=== PATIENT | male | born 1965 | race Caucasian/White ===

== ENCOUNTER 2017-09-10 21:48 | Emergency (ER) | payer SELFPAY ==
[2017-09-10 22:19] LABS: BASO # 0.1 K/uL (0.0-0.2); BASO % 0.3 % (0.0-2.0); HEMATOCRIT 48.4 % (35.0-51.0); LYMPH # 1.2 K/uL (1.0-4.3); LYMPH % 5.4 % (20.0-40.0); MEAN CELL VOLUME 96.4 fL (80.0-94.0); MEAN CORPUSCULAR HEMOGLOBIN 32.6 pg (27.0-31.0); MEAN CORPUSCULAR HGB CONC 33.9 g/dL (33.0-37.0); MEAN PLATELET VOLUME 8.3 fL (7.2-11.7); MONO # 1.4 K/uL (0.0-0.8); MONO % 6.3 % (0.0-10.0); NRBC % 0.1 % (0.0-2.0); PLATELET COUNT 278 K/uL (130-400); RED CELL DISTRIBUTION WIDTH 12.9 % (11.5-14.5)
[2017-09-10] MEDS ORDERED: Lactated Ringer's 1,000 ML IV STA (22:20)
[2017-09-10] MEDS ORDERED: Pantoprazole 80 MG in Sodium Chloride 0.9% 100 ML IV STA (22:20)
--- NOTE | 2017-09-10 22:20 | C.PDOC ---
History Of Present Illness Patient presents to ED with complaints of abdominal pain 04/04 with associated nausea and vomiting for 4-5 days. Patient states symptoms developed drinking over the weekend but denies daily ETOH use. Patient states he drank a reddish tea which he vomited and denies hematemesis, blood in stool, diarrhea or any other complaints at this time. Time Seen by Provider: 09/10/17 22:20 Chief Complaint (Nursing): GI Problem History Per: Patient History/Exam Limitations: no limitations Onset/Duration Of Symptoms: Days Current Symptoms Are (Timing): Still Present Number Of Bleeding Episodes: Unknown Severity: Mild Pain Scale Rating Of: 2 Quality Of Discomfort: "Pain" Associated Symptoms: Nausea, Vomiting. denies: Diarrhea, Hematemesis Modifying Factors: None Recent travel outside of the [place]: No Additional History Per: Patient Past Medical History Reviewed: Historical Data, Nursing Documentation, Vital Signs Vital Signs: Last Vital Signs Temp 99.5 F 09/10/17 22:19 Pulse 102 H 09/11/17 02:13 Resp 18 09/11/17 02:13 BP 157/83 H 09/11/17 02:13 Pulse Ox 98 09/11/17 02:13 - Medical History PMH: Gastrointestinal Ulcer Surgical History: No Surg Hx Family History: States: No Known Family Hx - Social History Hx Tobacco Use: Yes (Cigars) Hx Alcohol Use: Yes (Beer) Hx Substance Use: No - Immunization History Hx Tetanus Toxoid Vaccination: No Hx Influenza Vaccination: No Hx Pneumococcal Vaccination: No Review Of Systems Constitutional: Negative for: Fever, Chills Gastrointestinal: Positive for: Nausea, Vomiting, Abdominal Pain. Negative for : Diarrhea, Hematemesis Genitourinary: Negative for: Dysuria, Hematuria Musculoskeletal: Negative for: Back Pain Skin: Negative for: Rash Physical Exam - Physical Exam Appears: Non-toxic, No Acute Distress Skin: Warm, Dry, No Rash Head: Normacephalic Oral Mucosa: Dry Chest: Symmetrical Cardiovascular: Rhythm Regular Respiratory: No Rales, No Rhonchi, No Wheezing Gastrointestinal/Abdominal: Soft, Tenderness (Mid epigastric), No Guarding, No Rebound Back: No CVA Tenderness Neurological/Psych: Oriented x3 ED Course And Treatment - Laboratory Results Result Diagrams: 09/10/17 22:16 09/10/17 22:16 ECG: Interpreted By Me, Viewed By Me O2 Sat by Pulse Oximetry: 100 (RA) Pulse Ox Interpretation: Normal - Radiology CXR Interpretation: Yes: COPD. No: Infiltrates, Fracture, Cardiomegaly Reevaluation Time: 02:51 Reassessment Condition: Improved Disposition Counseled Patient/Family Regarding: Studies Performed, Diagnosis, Need For Followup, Rx Given - Disposition Referrals: [facility] [Outside] [facility] [Outside] Emmanuel Cosme MD [Staff Provider] - Disposition: HOME/ ROUTINE Disposition Time: 22:20 Condition: FAIR Prescriptions: Metronidazole [Flagyl] 500 mg PO TID #21 tablet Ondansetron ODT [Zofran ODT] 1 odt PO BID PRN #10 odt PRN Reason: Nausea/Vomiting Pantoprazole Sodium [Protonix] 40 mg PO DAILY #15 ect Instructions: Abdominal Pain (ED), Gastritis (DC), Acute Nausea and Vomiting ( ED) Forms: [facility] [facility]) [employer] (Greek) - Clinical Impression Clinical Impression: Gastritis, Abdominal pain, Vomiting, Nausea - Scribe Statement The provider has reviewed the documentation as recorded by the Kimberlyibshawn Chapin All medical record entries made by the Kimberlyibshawn were at my direction and personally dictated by me. I have reviewed the chart and agree that the record accurately reflects my personal performance of the history, physical exam, medical decision making, and the department course for this patient. I have also personally directed, reviewed, and agree with the discharge instructions and disposition.
[2017-09-10 22:27] LABS: INR 0.8
[2017-09-10] MEDS ORDERED: Lactated Ringer's 1,000 ML ONE (22:34)
[2017-09-10 22:40] LABS: ALKALINE PHOSPHATASE 63 U/L (38-126); ALT/SGPT 38 U/L (21-72); AST/SGOT 34 U/L (17-59); BILIRUBIN,TOTAL 0.7 mg/dL (0.2-1.3); BLOOD UREA NITROGEN 18 mg/dL (9-20); CALCIUM 9.4 mg/dl (8.6-10.4); CARBON DIOXIDE 21 mmol/L (22-30); CHLORIDE 99 mmol/L (98-107); GFR AFRICAN-AMERICAN > 60; GLUCOSE,RANDOM 222 mg/dL (75-110); POTASSIUM 3.9 mmol/L (3.6-5.2); SODIUM 136 mmol/L (132-148); TOTAL PROTEIN 8.9 g/dL (6.3-8.3)
[2017-09-10 22:42] LABS: ALB/GLOB RATIO 1.2 (1.0-2.1)
[2017-09-10 23:08] LABS: NEUTROPHIL 87 % (50-75); TOTAL CELLS COUNTED 100
[2017-09-10 23:19] LABS: RBC URINE 8 /hpf (0-3); URINE BILIRUBIN NEGATIVE (NEGATIVE); URINE BLOOD 1+ (NEGATIVE); URINE COLOR Yellow (YELLOW); URINE GLUCOSE (UA) 2+ mg/dL (Normal); URINE KETONE 1+ mg/dL (NEGATIVE); URINE LEUKOCYTE ESTERASE NEG Leu/uL (Negative); URINE PROTEIN 2+ mg/dL (NEGATIVE); URINE UROBILINOGEN NORMAL mg/dL (0.2-1.0); WBC URINE 1 /hpf (0-5)
[2017-09-11] MEDS ORDERED: Iodixanol 320 MG/ML 100 ML BOTTLE IV ONE (00:25)
--- NOTE | 2017-09-11 01:44 | CT ---
EXAM: CT Abdomen and Pelvis With Intravenous Contrast CLINICAL HISTORY: 52 years old, male; Pain; Abdominal pain and other: Vomiting, leukocytosis; Patient HX: 11-10-13; Additional info: Abd pain, vomiting, leukocytosis TECHNIQUE: Axial computed tomography images of the abdomen and pelvis with intravenous contrast. All CT scans at this facility use one or more dose reduction techniques, viz.: automated exposure control; ma/kV adjustment per patient size (including targeted exams where dose is matched to indication; i.e. head); or iterative reconstruction technique. Coronal and sagittal reformatted images were created and reviewed. CONTRAST: 100 mL of [id number] administered intravenously. COMPARISON: No relevant prior studies available. FINDINGS: Lower thorax: The bilateral lung bases are clear. ABDOMEN: Liver: The liver is enlarged and demonstrates diffuse fatty infiltration. Gallbladder and bile ducts: The gallbladder is distended, without calcified stones. No significant intra- or extrahepatic biliary ductal dilation. Pancreas: Enhances homogeneously. No ductal dilation. No discrete mass. Spleen: No acute findings. Adrenals: No acute findings. Kidneys and ureters: No acute findings. No hydronephrosis or renal calculi. No discrete solid mass. PELVIS: Bladder: No acute findings. Reproductive: No acute findings. Appendix: The appendix is of normal caliber (series 601, image 34). ABDOMEN and PELVIS: Stomach and bowel: Hyperemia along with mucosal thickening within the stomach is identified, findings suggesting gastritis. No obstruction. Rectosigmoid diverticulosis, without inflammation. Peritoneum: No significant fluid collection. No free air. Lymph nodes: No pathologically enlarged lymph nodes. Vasculature: Rapid excretion of intravenous contrast. Trace calcified atherosclerotic disease. Bones: No acute fracture. IMPRESSION: Hyperemia and mucosal thickening within the stomach suggesting gastritis, for which clinical correlation is needed. Multiple nonacute findings, as detailed above.
[2017-09-11 02:13] VITALS: RESP 18
[2017-09-11 03:24] VITALS: BP 145/85; PULSE 97; TEMP 98; O2SAT 98
--- NOTE | 2017-09-11 08:14 | RAD ---
PROCEDURE: CHEST RADIOGRAPH, 1 VIEW HISTORY: GI Bleeding COMPARISON: None available. FINDINGS: LUNGS: No gross focal infiltrate or effusion. PLEURA: No pneumothorax or pleural fluid seen. CARDIOVASCULAR: Normal. OSSEOUS STRUCTURES: No significant abnormalities. VISUALIZED UPPER ABDOMEN: Normal. OTHER FINDINGS: None. IMPRESSION: No active disease.
== END 2017-09-11 03:20 | disposition home or self-care (01) ==
LOC: C.ER 21:48
DX: K29.70 Gastritis, unspecified, without bleeding (principal); R10.9 Unspecified abdominal pain; R11.2 Nausea with vomiting, unspecified; Z87.891 Personal history of nicotine dependence
CPT/HCPCS: 71010; 74177; 80053; 81001; 83690; 85025; 85610; 85730; 86850; 86900; 96374; 96375; 99285; C9113; J1885; J2270; J2405; J2765; J7120; Q9967

== ENCOUNTER 2017-09-12 01:22 | Inpatient (IN) | payer SELFPAY ==
--- NOTE | 2017-09-12 01:32 | C.PDOC ---
History Of Present Illness Patient presents to the ER with a complaint of nausea, vomiting, not being able to tolerate any PO. Patient was seen here recently and had a negative work up. Denies fever or chills. Time Seen by Provider: 09/12/17 01:32 Chief Complaint (Nursing): GI Problem History Per: Patient History/Exam Limitations: no limitations Onset/Duration Of Symptoms: Hrs Current Symptoms Are (Timing): Still Present Context: Other Severity: Mild Pain Scale Rating Of: 4 Location Of Pain/Discomfort: Epigastric Radiation Of Pain To:: None Quality Of Discomfort: Unable To Describe Associated Symptoms: Nausea, Vomiting, Other (Not tolerating PO). denies: Fever , Chills Exacerbating Factors: None Alleviating Factors: None Recent travel outside of the [place]: No Additional History Per: Family Past Medical History Reviewed: Historical Data, Nursing Documentation, Vital Signs Vital Signs: Last Vital Signs Temp 97.9 F 09/12/17 01:31 Pulse 80 09/12/17 01:31 Resp 14 09/12/17 01:31 BP 164/127 H 09/12/17 01:31 Pulse Ox 97 09/12/17 01:31 - Medical History PMH: Gastrointestinal Ulcer Surgical History: No Surg Hx Family History: States: No Known Family Hx - Social History Hx Tobacco Use: Yes (Cigars) Hx Alcohol Use: Yes (Beer) Hx Substance Use: No - Immunization History Hx Tetanus Toxoid Vaccination: No Hx Influenza Vaccination: No Hx Pneumococcal Vaccination: No Review Of Systems Constitutional: Negative for: Fever, Chills Eyes: Negative for: Redness ENT: Negative for: Throat Pain Cardiovascular: Negative for: Chest Pain Respiratory: Negative for: Shortness of Breath Gastrointestinal: Positive for: Nausea, Vomiting, Abdominal Pain, Other (Not tolerating PO) Genitourinary: Negative for: Dysuria Musculoskeletal: Negative for: Back Pain Skin: Negative for: Rash Neurological: Negative for: Weakness Psych: Negative for: Anxiety Physical Exam - Physical Exam Appears: Non-toxic, No Acute Distress Skin: Normal Color, Warm, Dry Head: Atraumatic, Normacephalic Eye(s): bilateral: Normal Inspection Oral Mucosa: Moist, Dry Neck: Supple Chest: Symmetrical, No Tenderness Cardiovascular: Rhythm Regular Respiratory: No Rales, No Rhonchi, No Wheezing Gastrointestinal/Abdominal: Soft, Tenderness (Mid epigastric), No Guarding, No Rebound Back: Normal Inspection Extremity: No Tenderness Extremity: Bilateral: Atraumatic Pulses: Left Dorsalis Pedis: Normal, Right Dorsalis Pedis: Normal Neurological/Psych: Oriented x3, Normal Speech, Normal Cognition Gait: Steady ED Course And Treatment - Laboratory Results Result Diagrams: 09/12/17 01:47 09/12/17 01:47 Progress Note: Blood work ordered. Protonix and zofran administered. Disposition Discussed With Dr.: Andre Zheng Comment: accepted the pt on his service and took over the care at 4AM Doctor Will See Patient In The: ED Counseled Patient/Family Regarding: Studies Performed, Diagnosis - Disposition Disposition: HOSPITALIZED Disposition Time: 01:32 Condition: FAIR Forms: [facility] (German) - POA Present On Arrival: None - Clinical Impression Clinical Impression: Vomiting, Nausea, Abdominal pain - Scribe Statement The provider has reviewed the documentation as recorded by the Scribe Ricardo Schwartz All medical record entries made by the Scribe were at my direction and personally dictated by me. I have reviewed the chart and agree that the record accurately reflects my personal performance of the history, physical exam, medical decision making, and the department course for this patient. I have also personally directed, reviewed, and agree with the discharge instructions and disposition. Decision To Admit - Pt Status Changed To: Hospital Disposition Of: Inpatient - Admit Certification Admit to Inpatient:: After my assessment, the patient will require hospitalization for at least two midnights. This is because of the severity of symptoms shown, intensity of services needed, and/or the medical risk in this patient being treated as an outpatient. - InPatient: Physician Admission Certification:: After my assessment, the patient will require hospitalization for at least two midnights. This is because of the severity of symptoms shown, intensity of services needed, and/or the medical risk in this patient being treated as an outpatient. - . Bed Request Type: Regular Admitting Physician: Andre Zheng Patient Diagnosis: Vomiting, Nausea, Abdominal pain
[2017-09-12 01:50] LABS: BASO # 0.1 K/uL (0.0-0.2); BASO % 0.3 % (0.0-2.0); HEMATOCRIT 46.9 % (35.0-51.0); LYMPH # 1.6 K/uL (1.0-4.3); LYMPH % 10.5 % (20.0-40.0); MEAN CELL VOLUME 96.7 fL (80.0-94.0); MEAN CORPUSCULAR HEMOGLOBIN 33.2 pg (27.0-31.0); MEAN CORPUSCULAR HGB CONC 34.3 g/dL (33.0-37.0); MEAN PLATELET VOLUME 8.7 fL (7.2-11.7); MONO # 1.6 K/uL (0.0-0.8); MONO % 10.7 % (0.0-10.0); RED CELL DISTRIBUTION WIDTH 12.7 % (11.5-14.5); WHITE BLOOD COUNT 15.3 K/uL (4.8-10.8)
[2017-09-12] MEDS ORDERED: Lactated Ringer's 1,000 ML IV ONE (01:54)
[2017-09-12 02:01] LABS: INR 0.9
[2017-09-12 02:30] LABS: GLUCOSE,RANDOM 178 mg/dL (75-110)
[2017-09-12 02:31] LABS: CHLORIDE 98 mmol/L (98-107); POTASSIUM 3.8 mmol/L (3.6-5.2); TOTAL PROTEIN 8.2 g/dL (6.3-8.3)
[2017-09-12 02:32] LABS: BLOOD UREA NITROGEN 14 mg/dL (9-20); GFR AFRICAN-AMERICAN > 60; SODIUM 136 mmol/L (132-148)
[2017-09-12 02:33] LABS: ALB/GLOB RATIO 1.2 (1.0-2.1); BILIRUBIN,TOTAL 0.9 mg/dL (0.2-1.3); CARBON DIOXIDE 25 mmol/L (22-30)
[2017-09-12 02:34] LABS: ALKALINE PHOSPHATASE 50 U/L (38-126); ALT/SGPT 36 U/L (21-72)
[2017-09-12 02:37] LABS: ALCOHOL SERUM < 10 mg/dl (0-10)
[2017-09-12 02:41] LABS: AST/SGOT 37 U/L (17-59)
--- NOTE | 2017-09-12 03:57 | CP.PCM.HP ---
<Bob Coburn - Last Filed: 09/12/17 04:50> History of Present Illness - History of Present Illness History of Present Illness: This patient is a 52 year old male with a PMHx of ulcers who presents to the ED with complaints of nausea, non-bloody non-bilious vomiting x 3 days associated with subjective fever, chills, diffuse burning abdominal pain, and watery non- bloody stool. Patient presented to the E.D for the same reason on 09/10/17. Workup was negative except for gastritis found on Cat-Scan. He was dc'd from the ED with PO Zofran. Patient was unable to keep the Zofran down along with most foods or drinks. Patient has had several episodes with similar symptoms over the last 3 years. His abdominal pain is minimally relieved with Zantac. He has no primary care physician. ROS POSITIVE: Abdominal Pain, Nausea, Non-Blood Vomitting, Subjective Fever, Chills, Productive Cough with Brown/White sputum, non-bloody watery stool Headache, Dizziness, and generalized weakness NEGATIVE: Patient denies any recent changes in diet, sick contacts, urinary symptoms, chest pain, palpitations, SOB PMHx: Ulcers, HTN Allergies: Denies PSHx: Denies Hos: Multiple ED visits for similar symptoms Social Hx: 5 cigarettes a day intermittently for 30 years ago, 4-6 beers a day on Thursday, Admits to marijuana use. Works in Construction. FamHx: Diabetes (Mother), HTN (Mother) Meds: None PMD: None Present on Admission - Present on Admission Any Indicators Present on Admission: No Review of Systems - Review of Systems All systems: reviewed and no additional remarkable complaints except Review of Systems: As Per HPI Past Patient History - Infectious Disease Hx of Infectious Diseases: None - Past Social History Smoking Status: Light Smoker < 10 Cigarettes Daily - CARDIAC Hx Cardiac Disorders: No - PULMONARY Hx Respiratory Disorders: No - NEUROLOGICAL Hx Neurological Disorder: No - HEENT Hx HEENT Problems: No - RENAL Hx Chronic Kidney Disease: No - PSYCHIATRIC Hx Substance Use: No - SURGICAL HISTORY Hx Surgeries: No - ANESTHESIA Hx Anesthesia: Yes Hx Anesthesia Reactions: No Meds Allergies/Adverse Reactions: Allergies Allergy/AdvReac Type Severity Reaction Status Date / Time No Known Allergies Allergy Verified 09/12/17 01:34 Physical Exam - Constitutional Appears: Non-toxic, In Acute Distress, Cachectic - Head Exam Head Exam: ATRAUMATIC, NORMAL INSPECTION, NORMOCEPHALIC - Eye Exam Eye Exam: Normal appearance, PERRL. absent: Scleral icterus - ENT Exam ENT Exam: Mucous Membranes Dry - Neck Exam Neck exam: Negative for: Lymphadenopathy, Tenderness, Thyromegaly - Respiratory Exam Respiratory Exam: Clear to Auscultation Bilateral, NORMAL BREATHING PATTERN. absent: Chest Wall Tenderness, Decreased Breath Sounds, Rales, Rhonchi, Wheezes , Stridor - Cardiovascular Exam Cardiovascular Exam: RRR, +S1, +S2. absent: Diastolic murmur, Systolic Murmur - GI/Abdominal Exam GI & Abdominal Exam: Normal Bowel Sounds, Soft, Tenderness (Diffuse but more Epigastric. ) - Extremities Exam Extremities exam: Negative for: pedal edema - Back Exam Back exam: CVA tenderness (L). absent: CVA tenderness (R) - Neurological Exam Neurological exam: Alert, Oriented x3 - Skin Skin Exam: Dry, Intact, Normal Color, Warm Results - Vital Signs Recent Vital Signs: Last Vital Signs Temp 97.9 F 09/12/17 01:31 Pulse 80 09/12/17 01:31 Resp 14 09/12/17 01:31 BP 164/127 H 09/12/17 01:31 Pulse Ox 97 09/12/17 01:31 - Labs Result Diagrams: 09/12/17 01:47 09/12/17 01:47 Labs: Laboratory Results - last 24 hr 09/12/17 09/12/17 09/12/17 01:47 01:47 01:47 WBC 15.3 H RBC 4.84 Hgb 16.1 Hct 46.9 MCV 96.7 H MCH 33.2 H MCHC 34.3 RDW 12.7 Plt Count 219 MPV 8.7 Neut % (Auto) 78.5 H Lymph % (Auto) 10.5 L [place] % (Auto) 10.7 H Eos % (Auto) 0.0 Baso % (Auto) 0.3 Neut # 12.0 H Lymph # 1.6 [place] # 1.6 H Eos # 0.0 Baso # 0.1 PT 9.4 L INR 0.9 APTT 24 Sodium 136 Potassium 3.8 Chloride 98 Carbon Dioxide 25 Anion Gap 17 BUN 14 Creatinine 0.9 Est GFR ( Amer) > 60 Est GFR (Non-Af Amer) > 60 Random Glucose 178 H Calcium 9.0 Total Bilirubin 0.9 AST 37 ALT 36 Alkaline Phosphatase 50 Total Protein 8.2 Albumin 4.4 Globulin 3.8 Albumin/Globulin Ratio 1.2 Lipase 172 Alcohol, Quantitative < 10 Assessment & Plan - Assessment and Plan (Free Text) Assessment: 52 year old with PMHx of Ulcers admitted for intractable vomiting with associated abdominal pain Plan: Intractable Vomiting w/ Abdominal Pain likely 2/2 to Alcoholic gastritis vs Cannabinoid hyperemesis syndrome CT Abd/Pelvis on 09/10 showed Gastritis NPO GI Consult ([facility]) D5 NS w/ 20meQ KCL @ 125mls/hr Stool H.Pylori TSH w/ Free T4 HgBA1C UDS Protonix 40 IV Q12 Zofran 4mg IV Q6hrs CHAR x 1 day Ativan 1mg Once Elevated BP likely 2/2 Pain Monitor Patient Discussed with Attending Bob Coburn PGY-1 - Date & Time Date: 09/12/17 Time: 04:00 <Andre Zheng P - Last Filed: 09/12/17 22:15> Results - Vital Signs Recent Vital Signs: Last Vital Signs Temp 98.8 F 09/12/17 16:43 Pulse 83 09/12/17 16:43 Resp 20 09/12/17 16:43 BP 179/95 H 09/12/17 16:43 Pulse Ox 95 09/12/17 16:43 - Labs Result Diagrams: 09/12/17 01:47 09/12/17 01:47 Labs: Laboratory Results - last 24 hr 09/12/17 09/12/17 09/12/17 01:47 01:47 01:47 WBC 15.3 H RBC 4.84 Hgb 16.1 Hct 46.9 MCV 96.7 H MCH 33.2 H MCHC 34.3 RDW 12.7 Plt Count 219 MPV 8.7 Neut % (Auto) 78.5 H Lymph % (Auto) 10.5 L [place] % (Auto) 10.7 H Eos % (Auto) 0.0 Baso % (Auto) 0.3 Neut # 12.0 H Lymph # 1.6 [place] # 1.6 H Eos # 0.0 Baso # 0.1 PT 9.4 L INR 0.9 APTT 24 Sodium 136 Potassium 3.8 Chloride 98 Carbon Dioxide 25 Anion Gap 17 BUN 14 Creatinine 0.9 Est GFR ( Amer) > 60 Est GFR (Non-Af Amer) > 60 Random Glucose 178 H Calcium 9.0 Phosphorus Magnesium Total Bilirubin 0.9 AST 37 ALT 36 Alkaline Phosphatase 50 Total Protein 8.2 Albumin 4.4 Globulin 3.8 Albumin/Globulin Ratio 1.2 Lipase 172 Free T4 TSH 3rd Generation Alcohol, Quantitative < 10 09/12/17 09/12/17 07:10 07:10 WBC RBC Hgb Hct MCV MCH MCHC RDW Plt Count MPV Neut % (Auto) Lymph % (Auto) [place] % (Auto) Eos % (Auto) Baso % (Auto) Neut # Lymph # [place] # Eos # Baso # PT INR APTT Sodium Potassium Chloride Carbon Dioxide Anion Gap BUN Creatinine Est GFR ( Amer) Est GFR (Non-Af Amer) Random Glucose Calcium Phosphorus 2.7 Magnesium 1.8 Total Bilirubin AST ALT Alkaline Phosphatase Total Protein Albumin Globulin Albumin/Globulin Ratio Lipase Free T4 1.00 TSH 3rd Generation 0.57 Alcohol, Quantitative Attending/Attestation - Attestation I have personally seen and examined this patient.: Yes I have fully participated in the care of the patient.: Yes I have reviewed all pertinent clinical information: Yes Notes (Text): Assessment * Gastritis, intractable NV * H/o tobacco and alcohol abuse * Dehydration * Possible chronic weight loss Plan * Zofran, PPI iv bid * ativan, phenergan prn * IVF, NPO * GI consult possible endoscopy * H pylori * See orders for detail * Counselled about alcohol and tobacco cessation.
[2017-09-12] MEDS ORDERED: DEXTROSE IV SCH (05:00)
[2017-09-12] MEDS ORDERED: D5W IV SCH (05:00)
[2017-09-12] MEDS ORDERED: NS IV SCH (05:00)
[2017-09-12] MEDS ORDERED: POTASSIUM CH IV SCH (05:00)
[2017-09-12 08:27] LABS: MAGNESIUM 1.8 mg/dL (1.6-2.3); PHOSPHOROUS 2.7 mg/dL (2.5-4.5)
[2017-09-12 09:04] LABS: THYROID STIMULATING HORMONE 0.57 mIU/L (0.46-4.68)
[2017-09-12] MEDS ORDERED: Enoxaparin 40 mg Syringe SC SCH (10:00)
--- NOTE | 2017-09-12 10:01 | CP.PCM.PN ---
Addendum entered and electronically signed by Danii Valdovinos DO 09/12/17 11: 30: Added REglan trial for the day. Original Note: <Danii Valdovinos - Last Filed: 09/12/17 09:59> Subjective - Date & Time of Evaluation Date of Evaluation: 09/12/17 Time of Evaluation: 09:05 - Subjective Subjective: PGY3 Medicine Note - Dr. Villavicencio's service: Patient seen and examined at bedside this AM. Patient reports continued vomiting. Nothing is coming up anymore. Patient is dry heaving. Patient reports epigastric pain. Patient says he is not ready to start eating, even liquids. Patient denies fever, chills, chest pain, SOB. Objective - Vital Signs/Intake and Output Vital Signs (last 24 hours): Temp Pulse Resp BP Pulse Ox 98.6 F 72 20 159/95 H 96 09/12/17 07:35 09/12/17 07:35 09/12/17 07:35 09/12/17 07:35 09/12/17 07:35 - Medications Medications: Current Medications Heparin Sodium (Porcine) (Heparin) 5,000 units SC Q12 [facility] Last Admin: 09/12/17 09:30 Dose: 5,000 units Potassium Chloride/Dextrose 100 ml/ Dextrose/Sodium Chloride 1,100 mls @ 125 mls/hr IV .Q8H48M [facility] Last Admin: 09/12/17 05:20 Dose: 125 mls/hr Ondansetron HCl (Zofran Inj) 4 mg IVP Q6H [facility] Last Admin: 09/12/17 09:49 Dose: 4 mg Pantoprazole Sodium (Protonix Inj) 40 mg IVP Q12H [facility] Last Admin: 09/12/17 04:53 Dose: Not Given Pneumococcal Polyvalent Vaccine (Pneumovax 23 Vaccine) 0.5 ml IM .ONCE ONE Stop: 09/14/17 10:01 - Labs Labs: 09/12/17 01:47 09/12/17 01:47 PT 9.4 SECONDS (9.7-12.2) L 09/12/17 01:47 INR 0.9 09/12/17 01:47 APTT 24 SECONDS (21-34) 09/12/17 01:47 - Constitutional Appears: Non-toxic, No Acute Distress - Head Exam Head Exam: NORMAL INSPECTION - Eye Exam Eye Exam: EOMI - ENT Exam ENT Exam: Mucous Membranes Moist - Respiratory Exam Respiratory Exam: Clear to Ausculation Bilateral, NORMAL BREATHING PATTERN. absent: Rales, Rhonchi, Wheezes - Cardiovascular Exam Cardiovascular Exam: REGULAR RHYTHM, +S1, +S2. absent: Gallop, Rubs, Murmur - GI/Abdominal Exam GI & Abdominal Exam: Soft, Tenderness, Hyperactive Bowel Sounds - Extremities Exam Extremities Exam: absent: Pedal Edema - Neurological Exam Neurological Exam: Alert, Awake, Oriented x3 - Psychiatric Exam Psychiatric exam: Normal Affect, Normal Mood - Skin Skin Exam: Normal Color, Warm Assessment and Plan - Assessment and Plan (Free Text) Assessment: Intractable Vomiting w/ Abdominal Pain likely 2/2 to Alcoholic gastritis vs Cannabinoid hyperemesis syndrome CT Abd/Pelvis on 09/10 showed Gastritis NPO GI Consult ([facility]) - help appreciated - Recommending Endoscopy on Thursday if patient does not improve Advance diet as tolerated D5 NS w/ 20meQ KCL @ 125mls/hr Stool H.Pylori TSH - 0.57 Free T4 - 1.00 HgBA1C UDS Meds: Protonix 40 IV Q12 Zofran 4mg IV Q6hrs CHAR x 1 day Ativan 1mg Once Elevated BP likely 2/2 Pain Monitor Prophylaxis SCDs Protonix 40mg IVP Q12H <Jean Vlilavicencio - Last Filed: 09/12/17 17:54> Objective - Vital Signs/Intake and Output Vital Signs (last 24 hours): Temp Pulse Resp BP Pulse Ox 98.8 F 83 20 179/95 H 95 09/12/17 16:43 09/12/17 16:43 09/12/17 16:43 09/12/17 16:43 09/12/17 16:43 Intake and Output: 09/12/17 09/12/17 06:59 18:59 Intake Total 625 Balance 625 - Medications Medications: Current Medications Heparin Sodium (Porcine) (Heparin) 5,000 units SC Q12 [facility] Last Admin: 09/12/17 09:30 Dose: 5,000 units Metoclopramide HCl (Reglan) 10 mg IVP Q8H PRN PRN Reason: vomiting Stop: 09/13/17 10:54 Ondansetron HCl (Zofran Inj) 4 mg IVP Q6H [facility] Last Admin: 09/12/17 09:49 Dose: 4 mg Pantoprazole Sodium (Protonix Inj) 40 mg IVP DAILY [facility] Pneumococcal Polyvalent Vaccine (Pneumovax 23 Vaccine) 0.5 ml IM .ONCE ONE Stop: 09/14/17 10:01 - Labs Labs: 09/12/17 01:47 09/12/17 01:47 PT 9.4 SECONDS (9.7-12.2) L 09/12/17 01:47 INR 0.9 09/12/17 01:47 APTT 24 SECONDS (21-34) 09/12/17 01:47 Attending/Attestation - Attestation I have personally seen and examined this patient.: Yes I have fully participated in the care of the patient.: Yes I have reviewed all pertinent clinical information, including history, physical exam and plan: Yes Notes (Text): Patient is complaining of dry heaving,vomiting and epigastria pain continue protonix,NPO,zofran and IV fluids Seen by GI,EGD on Thursday I agree with the resident's documentation and the assessment
--- NOTE | 2017-09-12 10:45 | CP.PCM.CON ---
<Brenda Gray - Last Filed: 09/12/17 10:39> History of Present Illness - History of Present Illness History of Present Illness: GI Fellow PGY4 Consult Note This patient is a 52 year old male with a PMHx of gastritis who presents to the ED with complaints of nausea, non-bloody non-bilious vomiting x 3 days associated with diffuse burning abdominal pain. Patient presented to the ED for the same reason on 09/10/[address] imaging sowed mucosal thickening in the stomach consistent with gastritis and pt was discharged on Zofran. Patient was unable to keep the Zofran down along with food or liquids. Patient has had several episodes with similar symptoms over the last 2 years at which time he did have an EGD showing inflammation but no H.pylori infection or ulcers per pt. His abdominal pain is not relieved with Zantac and pain is usually in the morning associated with nausea, bloating, hiccups and pt reports 5 pound weight loss over the few weeks. ROS: A 12pt ROS was negative except as above PMHx: As stated in HPI PSHx: Denies SHx: 5 cigarettes a day intermittently for 30 years ago, 4-6 beers a day on Thursday, Admits to marijuana use FamHx: Diabetes (Mother), HTN (Mother) Past Patient History - Infectious Disease Hx of Infectious Diseases: None - Past Medical History & Family History Past Medical History?: No - Past Social History Smoking Status: Light Smoker < 10 Cigarettes Daily - CARDIAC Hx Cardiac Disorders: No Hx Hypertension: Yes - PULMONARY Hx Respiratory Disorders: No - NEUROLOGICAL Hx Neurological Disorder: No - HEENT Hx HEENT Problems: No - RENAL Hx Chronic Kidney Disease: No - MUSCULOSKELETAL/RHEUMATOLOGICAL Hx Falls: No - GASTROINTESTINAL Hx Gastritis: Yes - PSYCHIATRIC Hx Substance Use: Yes (marijuana) - SURGICAL HISTORY Hx Surgeries: No - ANESTHESIA Hx Anesthesia: No Hx Anesthesia Reactions: No Meds Allergies/Adverse Reactions: Allergies Allergy/AdvReac Type Severity Reaction Status Date / Time No Known Allergies Allergy Verified 09/12/17 01:34 - Medications Medications: Current Medications Heparin Sodium (Porcine) (Heparin) 5,000 units SC Q12 [facility] Last Admin: 09/12/17 09:30 Dose: 5,000 units Potassium Chloride/Dextrose 100 ml/ Dextrose/Sodium Chloride 1,100 mls @ 125 mls/hr IV .Q8H48M [facility] Last Admin: 09/12/17 05:20 Dose: 125 mls/hr Ondansetron HCl (Zofran Inj) 4 mg IVP Q6H [facility] Last Admin: 09/12/17 09:49 Dose: 4 mg Pantoprazole Sodium (Protonix Inj) 40 mg IVP Q12H [facility] Last Admin: 09/12/17 04:53 Dose: Not Given Pneumococcal Polyvalent Vaccine (Pneumovax 23 Vaccine) 0.5 ml IM .ONCE ONE Stop: 09/14/17 10:01 Physical Exam - Constitutional Additional comments: Appears uncomfortable with pain and nausea - Head Exam Head Exam: ATRAUMATIC, NORMAL INSPECTION, NORMOCEPHALIC - Eye Exam Eye Exam: EOMI, Normal appearance, PERRL Pupil Exam: PERRL - ENT Exam ENT Exam: Mucous Membranes Moist, Normal Exam - Respiratory Exam Respiratory Exam: Clear to Auscultation Bilateral, NORMAL BREATHING PATTERN - Cardiovascular Exam Cardiovascular Exam: REGULAR RHYTHM - GI/Abdominal Exam GI & Abdominal Exam: Normal Bowel Sounds, Soft, Tenderness. absent: Distended, Organomegaly - Rectal Exam Rectal Exam: Deferred - Extremities Exam Extremities exam: Positive for: normal inspection. Negative for: pedal edema - Back Exam Back exam: NORMAL INSPECTION - Neurological Exam Neurological exam: Alert, Oriented x3 - Psychiatric Exam Psychiatric exam: Normal Affect, Normal Mood - Skin Skin Exam: Dry, Intact, Normal Color, Warm Results - Vital Signs Recent Vital Signs: Last Vital Signs Temp 98.6 F 09/12/17 07:35 Pulse 72 09/12/17 07:35 Resp 20 09/12/17 07:35 BP 159/95 H 09/12/17 07:35 Pulse Ox 96 09/12/17 07:35 - Labs Result Diagrams: 09/12/17 01:47 09/12/17 01:47 Labs: Laboratory Results - last 24 hr 09/12/17 09/12/17 09/12/17 01:47 01:47 01:47 WBC 15.3 H RBC 4.84 Hgb 16.1 Hct 46.9 MCV 96.7 H MCH 33.2 H MCHC 34.3 RDW 12.7 Plt Count 219 MPV 8.7 Neut % (Auto) 78.5 H Lymph % (Auto) 10.5 L [place] % (Auto) 10.7 H Eos % (Auto) 0.0 Baso % (Auto) 0.3 Neut # 12.0 H Lymph # 1.6 [place] # 1.6 H Eos # 0.0 Baso # 0.1 PT 9.4 L INR 0.9 APTT 24 Sodium 136 Potassium 3.8 Chloride 98 Carbon Dioxide 25 Anion Gap 17 BUN 14 Creatinine 0.9 Est GFR ( Amer) > 60 Est GFR (Non-Af Amer) > 60 Random Glucose 178 H Calcium 9.0 Phosphorus Magnesium Total Bilirubin 0.9 AST 37 ALT 36 Alkaline Phosphatase 50 Total Protein 8.2 Albumin 4.4 Globulin 3.8 Albumin/Globulin Ratio 1.2 Lipase 172 Free T4 TSH 3rd Generation Alcohol, Quantitative < 10 09/12/17 09/12/17 07:10 07:10 WBC RBC Hgb Hct MCV MCH MCHC RDW Plt Count MPV Neut % (Auto) Lymph % (Auto) [place] % (Auto) Eos % (Auto) Baso % (Auto) Neut # Lymph # [place] # Eos # Baso # PT INR APTT Sodium Potassium Chloride Carbon Dioxide Anion Gap BUN Creatinine Est GFR ( Amer) Est GFR (Non-Af Amer) Random Glucose Calcium Phosphorus 2.7 Magnesium 1.8 Total Bilirubin AST ALT Alkaline Phosphatase Total Protein Albumin Globulin Albumin/Globulin Ratio Lipase Free T4 1.00 TSH 3rd Generation 0.57 Alcohol, Quantitative Assessment & Plan - Assessment and Plan (Free Text) Assessment: This is a 52yM presenting with complaints of abdominal pain, burning, nausea and vomiting. 1. Abdominal pain 2. Nausea and vomiting 3. GERD/Dyspepsia Plan: -Continue supportive care with pain control and anti-emetics -CT imaging reviewed from 09/10/2017 showing significant thickening of the stomach, etiology unclear -Recommend IV PPI daily until can be changed to po once tolerating diet -NPO at this time per pt request, can advance to clear liquids as tolerated -If no improvement in symptoms and continues to have N/V, abdominal pain/ burning will need EGD on Thursday to r/o PUD, Esophagitis, H.pylori, Gastritis -Discussed with primary team -Will continue to follow closely <Bjorn Sanchez - Last Filed: 09/12/17 14:53> Meds - Medications Medications: Current Medications Heparin Sodium (Porcine) (Heparin) 5,000 units SC Q12 [facility] Last Admin: 09/12/17 09:30 Dose: 5,000 units Potassium Chloride (Potassium Chloride 20 Meq/100 Ml) 20 meq in 100 mls @ 50 mls/hr IVPB ONCE ONE Stop: 09/12/17 14:59 Last Admin: 09/12/17 13:40 Dose: Not Given Metoclopramide HCl (Reglan) 10 mg IVP Q8H PRN PRN Reason: vomiting Stop: 09/13/17 10:54 Ondansetron HCl (Zofran Inj) 4 mg IVP Q6H [facility] Last Admin: 09/12/17 09:49 Dose: 4 mg Pantoprazole Sodium (Protonix Inj) 40 mg IVP DAILY [facility] Pneumococcal Polyvalent Vaccine (Pneumovax 23 Vaccine) 0.5 ml IM .ONCE ONE Stop: 09/14/17 10:01 Results - Vital Signs Recent Vital Signs: Last Vital Signs Temp 98.6 F 09/12/17 07:35 Pulse 72 09/12/17 07:35 Resp 20 09/12/17 07:35 BP 159/95 H 09/12/17 07:35 Pulse Ox 96 09/12/17 07:35 - Labs Result Diagrams: 09/12/17 01:47 09/12/17 01:47 Labs: Laboratory Results - last 24 hr 09/12/17 09/12/17 09/12/17 01:47 01:47 01:47 WBC 15.3 H RBC 4.84 Hgb 16.1 Hct 46.9 MCV 96.7 H MCH 33.2 H MCHC 34.3 RDW 12.7 Plt Count 219 MPV 8.7 Neut % (Auto) 78.5 H Lymph % (Auto) 10.5 L [place] % (Auto) 10.7 H Eos % (Auto) 0.0 Baso % (Auto) 0.3 Neut # 12.0 H Lymph # 1.6 [place] # 1.6 H Eos # 0.0 Baso # 0.1 PT 9.4 L INR 0.9 APTT 24 Sodium 136 Potassium 3.8 Chloride 98 Carbon Dioxide 25 Anion Gap 17 BUN 14 Creatinine 0.9 Est GFR ( Amer) > 60 Est GFR (Non-Af Amer) > 60 Random Glucose 178 H Calcium 9.0 Phosphorus Magnesium Total Bilirubin 0.9 AST 37 ALT 36 Alkaline Phosphatase 50 Total Protein 8.2 Albumin 4.4 Globulin 3.8 Albumin/Globulin Ratio 1.2 Lipase 172 Free T4 TSH 3rd Generation Alcohol, Quantitative < 10 09/12/17 09/12/17 07:10 07:10 WBC RBC Hgb Hct MCV MCH MCHC RDW Plt Count MPV Neut % (Auto) Lymph % (Auto) [place] % (Auto) Eos % (Auto) Baso % (Auto) Neut # Lymph # [place] # Eos # Baso # PT INR APTT Sodium Potassium Chloride Carbon Dioxide Anion Gap BUN Creatinine Est GFR ( Amer) Est GFR (Non-Af Amer) Random Glucose Calcium Phosphorus 2.7 Magnesium 1.8 Total Bilirubin AST ALT Alkaline Phosphatase Total Protein Albumin Globulin Albumin/Globulin Ratio Lipase Free T4 1.00 TSH 3rd Generation 0.57 Alcohol, Quantitative Attending/Attestation - Attestation I have personally seen and examined this patient.: Yes I have fully participated in the care of the patient.: Yes I have reviewed all pertinent clinical information: Yes Notes (Text): 09/12/17 14:51 52 year old male with h/o EtoH abuse in the past, h/o pancreatitis admitted with abdominal pain, nausea and vomiting. 1. Abdominal pain 2. Nausea and vomiting 3. Dyspepsia Plan: -CT reviewed, marked antral thickening, will need endoscopy at some point -recommend high dose PPI therpay for now -if symptoms resolve, he can get outpatient egd, if he doesn't improve he will need EGD thursday -zoan as needed for vomiting
[2017-09-13 07:57] LABS: BASO % 0.3 % (0.0-2.0); EOS % 0.4 % (0.0-4.0); HEMATOCRIT 46.4 % (35.0-51.0); LYMPH # 1.6 K/uL (1.0-4.3); LYMPH % 16.5 % (20.0-40.0); MEAN CELL VOLUME 97.2 fL (80.0-94.0); MEAN CORPUSCULAR HEMOGLOBIN 33.5 pg (27.0-31.0); MEAN CORPUSCULAR HGB CONC 34.4 g/dL (33.0-37.0); MEAN PLATELET VOLUME 8.8 fL (7.2-11.7); MONO # 1.1 K/uL (0.0-0.8); MONO % 11.5 % (0.0-10.0); RED CELL DISTRIBUTION WIDTH 12.3 % (11.5-14.5); WHITE BLOOD COUNT 9.5 K/uL (4.8-10.8)
[2017-09-13 08:28] LABS: ALB/GLOB RATIO 1.5 (1.0-2.1); ALKALINE PHOSPHATASE 51 U/L (38-126); ALT/SGPT 29 U/L (21-72); AST/SGOT 25 U/L (17-59); BILIRUBIN,TOTAL 1.2 mg/dL (0.2-1.3); BLOOD UREA NITROGEN 12 mg/dL (9-20); CALCIUM 8.6 mg/dl (8.6-10.4); CARBON DIOXIDE 26 mmol/L (22-30); CHLORIDE 97 mmol/L (98-107); GFR AFRICAN-AMERICAN > 60; GLUCOSE,RANDOM 117 mg/dL (75-110); POTASSIUM 3.4 mmol/L (3.6-5.2); SODIUM 134 mmol/L (132-148); TOTAL PROTEIN 6.9 g/dL (6.3-8.3)
--- NOTE | 2017-09-13 09:19 | CP.PCM.PN ---
Subjective - Date & Time of Evaluation Date of Evaluation: 09/13/17 Time of Evaluation: 09:15 - Subjective Subjective: Medical Attending Note: Patient seen and examined this morning. Patient reporting persistent nausea and gagging over night. Patient reports he did not lie flat while sleeping. Patient also reports persistent cough, non- productive at bedside. Patient reports he has not had a bowel movement for the past four days. Patient would like to try clear liquids but was advised if he continues to feel his symptoms to let the GI doctor know. Patient is tobacco user. Patient denies fever, denies chills, denies chest pain, denies palpitations, denies shortness of breathe, +constipation, +epigastric pain, denies BRBPR, reports brown stool, denies family hx of colon cancer +dry cough. Objective - Vital Signs/Intake and Output Vital Signs (last 24 hours): Temp Pulse Resp BP Pulse Ox 98.4 F 88 20 111/78 96 09/13/17 07:59 09/13/17 07:59 09/13/17 07:59 09/13/17 07:59 09/13/17 07:59 Intake and Output: 09/13/17 09/13/17 06:59 18:59 Intake Total 0 Balance 0 - Medications Medications: Current Medications Potassium Chloride (Potassium Chloride 20 Meq/100 Ml) 20 meq in 100 mls @ 50 mls/hr IVPB ONCE ONE Stop: 09/13/17 11:14 Metoclopramide HCl (Reglan) 10 mg IVP Q8H PRN PRN Reason: vomiting Stop: 09/13/17 10:54 Last Admin: 09/13/17 02:59 Dose: 10 mg Ondansetron HCl (Zofran Inj) 4 mg IVP Q6H [facility] Last Admin: 09/13/17 05:13 Dose: 4 mg Pantoprazole Sodium (Protonix Inj) 40 mg IVP DAILY [facility] Last Admin: 09/13/17 05:13 Dose: 40 mg Pneumococcal Polyvalent Vaccine (Pneumovax 23 Vaccine) 0.5 ml IM .ONCE ONE Stop: 09/14/17 10:01 - Labs Labs: 09/13/17 07:42 09/13/17 07:42 PT 9.4 SECONDS (9.7-12.2) L 09/12/17 01:47 INR 0.9 09/12/17 01:47 APTT 24 SECONDS (21-34) 09/12/17 01:47 - Constitutional Appears: Non-toxic, No Acute Distress - Head Exam Head Exam: NORMAL INSPECTION - Eye Exam Eye Exam: EOMI, PERRL. absent: Scleral icterus Pupil Exam: NORMAL ACCOMODATION - ENT Exam ENT Exam: Mucous Membranes Dry - Respiratory Exam Respiratory Exam: Decreased Breath Sounds, NORMAL BREATHING PATTERN. absent: Respiratory Distress, Stridor - Cardiovascular Exam Cardiovascular Exam: RRR, +S1, +S2 - GI/Abdominal Exam GI & Abdominal Exam: Soft, Tenderness (patient is tender to palpation over left and right lower quadrants), Normal Bowel Sounds. absent: Distended, Firm, Guarding, Rigid, Organomegaly, Rebound - Extremities Exam Extremities Exam: absent: Pedal Edema, Tenderness - Neurological Exam Neurological Exam: Alert, Awake, Oriented x3 - Psychiatric Exam Psychiatric exam: Anxious, Normal Mood - Skin Skin Exam: Dry, Intact, Normal Color, Warm Assessment and Plan (1) Abdominal pain Assessment & Plan: GI (Dr. Jessica/Laura/[facility] group) on the case help appreciated Lipase: normal Patient would like to attempt liquid diet today but has abdominal pain, persistent nausea, age>50 and cigarette and alcohol use; patient has never been on PPI prior Patient advised to let GI know to plan for EGD accordingly Status: Acute (2) Alcohol use Assessment & Plan: Blood alcohol <10 on admission Patient is not in acute withdrawal, no tremors on exam Status: Chronic (3) Tobacco use disorder Assessment & Plan: Patient is smoker, 5 cigarettes/day for 30+ years Ordered for nicotone patch Advised smoking cessation at bedside Status: Chronic (4) Cough Assessment & Plan: ordered for chest xray History of smoking Status: Acute (5) Hypokalemia Assessment & Plan: replete order for mg2+ Status: Acute (6) Nausea without vomiting Assessment & Plan: Patient is on Reglan 10mg IVP Q6H PRN vomitting (2nd line) and Zofran 4mg IVp Q 6H PRN nausea (1st line) Status: Acute (7) Constipation Assessment & Plan: start Colace 100mg PO TID Dose of Lactulose X1 f/u bowel movement Status: Acute (8) Prophylactic measure Assessment & Plan: Held chemical anticoagulation in preparation for possible EGD tomorrow Protonix 40mg IV q daily Status: Acute
[2017-09-13] MEDS: Sodium Chloride 0.9% 1,000 ML IV SCH ×2 (10:12→20:20)
--- NOTE | 2017-09-13 10:48 | CP.PCM.PN ---
<Brenda Gray - Last Filed: 09/13/17 11:09> Subjective - Date & Time of Evaluation Date of Evaluation: 09/13/17 Time of Evaluation: 10:30 - Subjective Subjective: GI Fellow PGY4 Progress Note Pt seen and evaluated at bedside, pt overnight had a lot of nausea and dry heaves with burning sensation in throat. Pt was NPO but would like to try a clear liquid diet today. Discussed with pt about need for possible EGD tomorrow if symptoms do not improve. ROS: A 12pt ROS was negative except as above. Objective - Vital Signs/Intake and Output Vital Signs (last 24 hours): Temp Pulse Resp BP Pulse Ox 98.4 F 88 20 111/78 96 09/13/17 07:59 09/13/17 07:59 09/13/17 07:59 09/13/17 07:59 09/13/17 07:59 Intake and Output: 09/13/17 09/13/17 06:59 18:59 Intake Total 0 Balance 0 - Medications Medications: Current Medications Docusate Sodium (Colace) 100 mg PO TID [facility] Last Admin: 09/13/17 10:12 Dose: 100 mg Potassium Chloride (Potassium Chloride 20 Meq/100 Ml) 20 meq in 100 mls @ 50 mls/hr IVPB ONCE ONE Stop: 09/13/17 11:14 Last Admin: 09/13/17 10:11 Dose: 50 mls/hr Sodium Chloride (Sodium Chloride 0.9%) 1,000 mls @ 100 mls/hr IV .Q10H [facility] Last Admin: 09/13/17 10:12 Dose: 100 mls/hr Metoclopramide HCl (Reglan) 10 mg IVP Q6H PRN PRN Reason: vomiting Stop: 09/13/17 10:54 Nicotine (Nicoderm Cq) 1 patch TD DAILY [facility] Last Admin: 09/13/17 10:13 Dose: 1 patch Ondansetron HCl (Zofran Inj) 4 mg IVP Q6H [facility] Last Admin: 09/13/17 10:12 Dose: 4 mg Pantoprazole Sodium (Protonix Inj) 40 mg IVP DAILY [facility] Last Admin: 09/13/17 10:12 Dose: 40 mg Pneumococcal Polyvalent Vaccine (Pneumovax 23 Vaccine) 0.5 ml IM .ONCE ONE Stop: 09/14/17 10:01 Polyethylene Glycol (Miralax) 17 gm PO DAILY [facility] - Labs Labs: 09/13/17 07:42 09/13/17 07:42 PT 9.4 SECONDS (9.7-12.2) L 09/12/17 01:47 INR 0.9 09/12/17 01:47 APTT 24 SECONDS (21-34) 09/12/17 01:47 - Constitutional Appears: Non-toxic, No Acute Distress - Head Exam Head Exam: ATRAUMATIC, NORMAL INSPECTION, NORMOCEPHALIC - Eye Exam Eye Exam: EOMI, Normal appearance, PERRL Pupil Exam: NORMAL ACCOMODATION, PERRL - ENT Exam ENT Exam: Mucous Membranes Moist, Normal Exam - Neck Exam Neck Exam: Full ROM, Normal Inspection - Respiratory Exam Respiratory Exam: Clear to Ausculation Bilateral - Cardiovascular Exam Cardiovascular Exam: REGULAR RHYTHM - GI/Abdominal Exam GI & Abdominal Exam: Soft, Tenderness, Normal Bowel Sounds. absent: Distended, Firm, Guarding, Rigid - Rectal Exam Rectal Exam: Deferred - Extremities Exam Extremities Exam: Full ROM, Normal Inspection - Back Exam Back Exam: NORMAL INSPECTION - Neurological Exam Neurological Exam: Alert, Awake, Oriented x3 - Psychiatric Exam Psychiatric exam: Normal Affect, Normal Mood - Skin Skin Exam: Dry, Intact, Normal Color, Warm Assessment and Plan - Assessment and Plan (Free Text) Assessment: This is a 52yM presenting with complaints of abdominal pain, burning, nausea and vomiting. 1. Abdominal pain 2. Nausea and vomiting 3. GERD/Dyspepsia Plan: -Continue supportive care with pain control and anti-emetics -CT imaging reviewed from 09/10/2017 showing significant antral thickening -Recommend IV PPI daily until can be changed to po once tolerating diet -Clear liquid diet per pt request, can make NPO after midnight for possible EGD -If no improvement in symptoms and continues to have N/V, abdominal pain/ burning will need EGD tomorrow to r/o PUD, Esophagitis, H.pylori, Gastritis -Will continue to follow closely <Bjorn Sanchez - Last Filed: 09/13/17 11:54> Objective - Vital Signs/Intake and Output Vital Signs (last 24 hours): Temp Pulse Resp BP Pulse Ox 98.4 F 88 20 111/78 96 09/13/17 07:59 09/13/17 07:59 09/13/17 07:59 09/13/17 07:59 09/13/17 07:59 Intake and Output: 09/13/17 09/13/17 06:59 18:59 Intake Total 0 Balance 0 - Medications Medications: Current Medications Docusate Sodium (Colace) 100 mg PO TID [facility] Last Admin: 09/13/17 10:12 Dose: 100 mg Sodium Chloride (Sodium Chloride 0.9%) 1,000 mls @ 100 mls/hr IV .Q10H [facility] Last Admin: 09/13/17 10:12 Dose: 100 mls/hr Nicotine (Nicoderm Cq) 1 patch TD DAILY [facility] Last Admin: 09/13/17 10:13 Dose: 1 patch Ondansetron HCl (Zofran Inj) 4 mg IVP Q6H [facility] Last Admin: 09/13/17 10:12 Dose: 4 mg Pantoprazole Sodium (Protonix Inj) 40 mg IVP DAILY [facility] Last Admin: 09/13/17 10:12 Dose: 40 mg Pneumococcal Polyvalent Vaccine (Pneumovax 23 Vaccine) 0.5 ml IM .ONCE ONE Stop: 09/14/17 10:01 Polyethylene Glycol (Miralax) 17 gm PO DAILY [facility] Last Admin: 09/13/17 11:09 Dose: 17 gm - Labs Labs: 09/13/17 07:42 09/13/17 07:42 PT 10.3 SECONDS (9.7-12.2) 09/13/17 11:07 INR 0.9 09/13/17 11:07 APTT 24 SECONDS (21-34) 09/12/17 01:47 Attending/Attestation - Attestation I have personally seen and examined this patient.: Yes I have fully participated in the care of the patient.: Yes I have reviewed all pertinent clinical information, including history, physical exam and plan: Yes Notes (Text): 09/13/17 11:53 52 year old male with h/o EtoH abuse in the past, h/o pancreatitis admitted with abdominal pain, nausea and vomiting. 1. Abdominal pain 2. Nausea and vomiting 3. Dyspepsia Plan: -trial of liquids today -continue PPI / anti-emetics -npo after MN for possible EGD tomorrow if no improvement
[2017-09-13] MEDS: POLYETHYLENE GLYCOL 3350 17 GM/Dose PACKET PO SCH (11:09)
[2017-09-13 11:26] LABS: INR 0.9
--- NOTE | 2017-09-13 13:35 | RAD ---
Chest x-ray single frontal view History: Cough. Comparison: 09/10/2017 Findings: Hyperinflation suggestive for COPD and or emphysematous changes. No gross focal infiltrate or effusion. Heart size within normal limits. Mild degenerative changes in spine. Impression: No focal infiltrate or effusion.
[2017-09-14] MEDS: Sodium Chloride 0.9% 1,000 ML IV SCH ×2 (06:01→15:30)
[2017-09-14 06:54] LABS: BASO % 0.7 % (0.0-2.0); EOS # 0.1 K/uL (0.0-0.7); EOS % 1.5 % (0.0-4.0); LYMPH # 2.5 K/uL (1.0-4.3); LYMPH % 36.8 % (20.0-40.0); MEAN CELL VOLUME 97.4 fL (80.0-94.0); MEAN CORPUSCULAR HEMOGLOBIN 33.1 pg (27.0-31.0); MEAN PLATELET VOLUME 8.5 fL (7.2-11.7); MONO % 14.8 % (0.0-10.0); NRBC % 0.1 % (0.0-2.0); RED CELL DISTRIBUTION WIDTH 12.4 % (11.5-14.5); WHITE BLOOD COUNT 6.7 K/uL (4.8-10.8)
[2017-09-14 06:56] LABS: ALB/GLOB RATIO 1.5 (1.0-2.1); ALKALINE PHOSPHATASE 35 U/L (38-126); ALT/SGPT 34 U/L (21-72); AST/SGOT 33 U/L (17-59); BILIRUBIN,TOTAL 1.5 mg/dL (0.2-1.3); BLOOD UREA NITROGEN 13 mg/dL (9-20); CALCIUM 8.2 mg/dl (8.6-10.4); CARBON DIOXIDE 24 mmol/L (22-30); CHLORIDE 99 mmol/L (98-107); GFR AFRICAN-AMERICAN > 60; GLUCOSE,RANDOM 106 mg/dL (75-110); POTASSIUM 4.1 mmol/L (3.6-5.2); SODIUM 133 mmol/L (132-148); TOTAL PROTEIN 6.1 g/dL (6.3-8.3)
--- NOTE | 2017-09-14 08:45 | CP.PCM.PN ---
Subjective - Date & Time of Evaluation Date of Evaluation: 09/14/17 Time of Evaluation: 08:45 - Subjective Subjective: Patient was seen and examined at bedside in no acute distress. Patient reports feeling nausea in the morning, and when seen again in the early afternoon, states his nausea has resolved. Patient states he is hungry and is requesting food. He states he had a watery bowel movement yesterday after taking Colace and Miralax and a second watery bowel movement this morning. Patient denies having abdominal pain, vomiting, fevers, chills, shortness of breath, chest pain , and headaches. Objective - Vital Signs/Intake and Output Vital Signs (last 24 hours): Temp Pulse Resp BP Pulse Ox 99.1 F 84 20 149/88 98 09/14/17 00:00 09/14/17 00:00 09/14/17 00:00 09/14/17 00:00 09/14/17 00:00 Intake and Output: 09/14/17 09/14/17 06:59 18:59 Intake Total 1700 Balance 1700 - Medications Medications: Current Medications Docusate Sodium (Colace) 100 mg PO TID [facility] Last Admin: 09/13/17 17:11 Dose: 100 mg Sodium Chloride (Sodium Chloride 0.9%) 1,000 mls @ 100 mls/hr IV .Q10H [facility] Last Admin: 09/14/17 06:01 Dose: Not Given Nicotine (Nicoderm Cq) 1 patch TD DAILY [facility] Last Admin: 09/13/17 10:13 Dose: 1 patch Ondansetron HCl (Zofran Inj) 4 mg IVP Q6H [facility] Last Admin: 09/14/17 04:02 Dose: 4 mg Pantoprazole Sodium (Protonix Inj) 40 mg IVP DAILY [facility] Last Admin: 09/13/17 10:12 Dose: 40 mg Pneumococcal Polyvalent Vaccine (Pneumovax 23 Vaccine) 0.5 ml IM .ONCE ONE Stop: 09/14/17 10:01 Polyethylene Glycol (Miralax) 17 gm PO DAILY [facility] Last Admin: 09/13/17 11:09 Dose: 17 gm - Labs Labs: 09/14/17 06:17 09/14/17 06:17 PT 10.3 SECONDS (9.7-12.2) 09/13/17 11:07 INR 0.9 09/13/17 11:07 APTT 24 SECONDS (21-34) 09/12/17 01:47 - Constitutional Appears: No Acute Distress - Head Exam Head Exam: ATRAUMATIC, NORMAL INSPECTION - Eye Exam Eye Exam: EOMI, Normal appearance - ENT Exam ENT Exam: Mucous Membranes Moist - Neck Exam Neck Exam: Full ROM, Normal Inspection - Respiratory Exam Respiratory Exam: Clear to Ausculation Bilateral, NORMAL BREATHING PATTERN. absent: Rales, Rhonchi, Wheezes, Respiratory Distress - Cardiovascular Exam Cardiovascular Exam: REGULAR RHYTHM, +S1, +S2. absent: Bradycardia, Tachycardia - GI/Abdominal Exam GI & Abdominal Exam: Soft, Normal Bowel Sounds. absent: Distended, Firm, Guarding, Tenderness, Mass - Extremities Exam Extremities Exam: Normal Inspection. 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 Jessica/Laura/[facility] group) Lipase: normal 09/14: Patient tried clear liquids yesterday, but felt nausea. Patient was placed on NPO past midnight in preparation for possible EGD Thursday if symptoms did not improve. Patient reports feeling better today, feeling hungry, and requesting to eat. Patient will start clear liquid diet today. If patient complains of abdominal pain post-eating, patient must let staff know and will plan for EGD with GI. Patient given one dose of carafate PO. (2) Alcohol use Assessment & Plan: Blood alcohol <10 on admission Patient is not in acute withdrawal, no tremors on exam Continue to monitor (3) Tobacco use disorder Assessment & Plan: Patient is smoker, 5 cigarettes/day for 30+ years Continue nicotine patch Advised smoking cessation at bedside (4) Cough Assessment & Plan: ordered for chest xray History of smoking (5) Hypokalemia Assessment & Plan: Resovled (6) Nausea without vomiting Assessment & Plan: 09/14: Continue Zofran 4mg IVp Q 6H PRN nausea 09/13: Discontinued Reglan 10mg IVP Q6H PRN vomitting (7) Constipation Assessment & Plan: Started Colace 100mg PO TID Given one dose of miralax on 09/13 Dose of Lactulose X1 Patient had 2 loose bowel movement after taking Colace. Resolved (8) Prophylactic measure Assessment & Plan: Held chemical anticoagulation in preparation for possible EGD. Protonix 40mg IV q daily
[2017-09-14] MEDS ORDERED: Pneumococcal 23-Valent Vaccine IM ONE (10:00)
[2017-09-14] MEDS ORDERED: Influenza Vaccine 60 mcg/0.5 mL SYR (4YR UP) IM ONE (10:05)
[2017-09-14] MEDS: POLYETHYLENE GLYCOL 3350 17 GM/Dose PACKET PO SCH (10:48)
[2017-09-14] MEDS ORDERED: Sucralfate 1 gm/10 ml Oral Susp UD PO ONE ×2 (12:40→15:00)
--- NOTE | 2017-09-14 15:26 | CP.PCM.PN ---
<Alyssa Ahn - Last Filed: 09/14/17 15:59> Subjective - Date & Time of Evaluation Date of Evaluation: 09/14/17 Time of Evaluation: 15:26 - Subjective Subjective: Gastroenterology Fellow/PGY5 Progress Note Patient continues to have epigastric pain. Tolerating small amounts of liquid diet. A 12-point review of systems negative except for as above. Objective - Vital Signs/Intake and Output Vital Signs (last 24 hours): Temp Pulse Resp BP Pulse Ox 97.7 F 83 21 132/93 H 98 09/14/17 09:31 09/14/17 09:31 09/14/17 09:31 09/14/17 09:31 09/14/17 09:31 Intake and Output: 09/14/17 09/14/17 06:59 18:59 Intake Total 1700 1040 Balance 1700 1040 - Medications Medications: Current Medications Docusate Sodium (Colace) 100 mg PO TID [facility] Last Admin: 09/14/17 14:12 Dose: 100 mg Sodium Chloride (Sodium Chloride 0.9%) 1,000 mls @ 100 mls/hr IV .Q10H [facility] Last Admin: 09/14/17 06:01 Dose: Not Given Nicotine (Nicoderm Cq) 1 patch TD DAILY [facility] Last Admin: 09/14/17 10:48 Dose: 1 patch Ondansetron HCl (Zofran Inj) 4 mg IVP Q6H [facility] Last Admin: 09/14/17 10:54 Dose: 4 mg Pantoprazole Sodium (Protonix Inj) 40 mg IVP DAILY [facility] Last Admin: 09/14/17 10:49 Dose: 40 mg Polyethylene Glycol (Miralax) 17 gm PO DAILY [facility] Last Admin: 09/14/17 10:48 Dose: Not Given - Labs Labs: 09/14/17 06:17 09/14/17 06:17 PT 10.3 SECONDS (9.7-12.2) 09/13/17 11:07 INR 0.9 09/13/17 11:07 APTT 24 SECONDS (21-34) 09/12/17 01:47 - Constitutional Appears: Non-toxic, No Acute Distress - Head Exam Head Exam: ATRAUMATIC, NORMOCEPHALIC - Eye Exam Eye Exam: EOMI, PERRL. absent: Scleral icterus Pupil Exam: PERRL. absent: Miosis, Mydriatic - ENT Exam ENT Exam: Mucous Membranes Moist, Normal Oropharynx - Neck Exam Neck Exam: Full ROM, Normal Inspection - Respiratory Exam Respiratory Exam: Clear to Ausculation Bilateral. absent: Rales, Rhonchi, Wheezes - Cardiovascular Exam Cardiovascular Exam: RRR, +S1, +S2. absent: Gallop, Rubs - GI/Abdominal Exam GI & Abdominal Exam: Soft, Normal Bowel Sounds. absent: Distended, Firm, Guarding, Rigid, Tenderness, Organomegaly, Rebound - Extremities Exam Extremities Exam: Full ROM, Normal Inspection - Neurological Exam Neurological Exam: Alert, Awake - Psychiatric Exam Psychiatric exam: Normal Affect, Normal Mood - Skin Skin Exam: Dry, Intact, Normal Color, Warm Assessment and Plan - Assessment and Plan (Free Text) Assessment: 52 year old male with history of Polysubstance abuse and pancreatitis presenting with abdominal pain, nausea and vomiting. Active treatment of dyspepsia, abdominal pain, nausea and vomiting. CT on admission and multiple prior CT A/P with gastric thickening. No prior EGD or colonoscopy. Plan: >continue PPI daily >continue anti-emetics >patient advanced to clear liquid diet >reschedule EGD tomorrow to evaluate for PUD/esophagitis/H pylori Gastritis >further recommendations after endoscopic evaluation <Bjorn Sanchez - Last Filed: 09/14/17 16:35> Objective - Vital Signs/Intake and Output Vital Signs (last 24 hours): Temp Pulse Resp BP Pulse Ox 99.1 F 80 20 141/87 99 09/14/17 15:00 09/14/17 15:00 09/14/17 15:00 09/14/17 15:00 09/14/17 15:00 Intake and Output: 09/14/17 09/14/17 06:59 18:59 Intake Total 1700 1040 Balance 1700 1040 - Medications Medications: Current Medications Docusate Sodium (Colace) 100 mg PO TID [facility] Last Admin: 09/14/17 14:12 Dose: 100 mg Sodium Chloride (Sodium Chloride 0.9%) 1,000 mls @ 100 mls/hr IV .Q10H [facility] Last Admin: 09/14/17 06:01 Dose: Not Given Nicotine (Nicoderm Cq) 1 patch TD DAILY [facility] Last Admin: 09/14/17 10:48 Dose: 1 patch Ondansetron HCl (Zofran Inj) 4 mg IVP Q6H [facility] Last Admin: 09/14/17 10:54 Dose: 4 mg Pantoprazole Sodium (Protonix Inj) 40 mg IVP DAILY [facility] Last Admin: 09/14/17 10:49 Dose: 40 mg Polyethylene Glycol (Miralax) 17 gm PO DAILY [facility] Last Admin: 09/14/17 10:48 Dose: Not Given - Labs Labs: 09/14/17 06:17 09/14/17 06:17 PT 10.3 SECONDS (9.7-12.2) 09/13/17 11:07 INR 0.9 09/13/17 11:07 APTT 24 SECONDS (21-34) 09/12/17 01:47 Attending/Attestation - Attestation I have personally seen and examined this patient.: Yes I have fully participated in the care of the patient.: Yes I have reviewed all pertinent clinical information, including history, physical exam and plan: Yes Notes (Text): 09/14/17 16:34 52 year old male with h/o EtoH abuse in the past, h/o pancreatitis admitted with abdominal pain, nausea and vomiting. 1. Abdominal pain 2. Nausea and vomiting 3. Abnormal CT scan of the stomach 4. Diarrhea Plan: -patient ate despite being NPO for some reason, egd cancelled -npo after MN for egd tomorrow -continue PPI as above -recommend stool studies to r/o infectious diarrhea -anti-emetics as needed
[2017-09-15 07:29] LABS: BASO # 0.1 K/uL (0.0-0.2); BASO % 1.1 % (0.0-2.0); EOS # 0.2 K/uL (0.0-0.7); EOS % 3.2 % (0.0-4.0); HEMATOCRIT 42.4 % (35.0-51.0); LYMPH # 1.7 K/uL (1.0-4.3); MEAN CORPUSCULAR HEMOGLOBIN 33.4 pg (27.0-31.0); MEAN CORPUSCULAR HGB CONC 34.1 g/dL (33.0-37.0); MEAN PLATELET VOLUME 8.6 fL (7.2-11.7); MONO # 0.9 K/uL (0.0-0.8); MONO % 15.9 % (0.0-10.0); NRBC % 0.1 % (0.0-2.0); RED CELL DISTRIBUTION WIDTH 11.9 % (11.5-14.5); WHITE BLOOD COUNT 5.4 K/uL (4.8-10.8)
[2017-09-15] MEDS ORDERED: Lidocaine Hydrochloride 5 ML INJ ONE (07:36)
[2017-09-15] MEDS ORDERED: Propofol 10 mg/ml Inj (20 ML) ONE (07:36)
[2017-09-15] MEDS ORDERED: Lactated Ringer's 1,000 ML IV ONE (07:45)
--- NOTE | 2017-09-15 07:54 | CP.PCM.PN ---
Subjective - Date & Time of Evaluation Date of Evaluation: 09/15/17 Time of Evaluation: 07:52 - Subjective Subjective: Patient seen and examined. No acute events overnight, he was able to tolerate PO liquids yesterday without difficulty. He continues to endorse mild epigastric abdominal pain and 3 episodes of loose bowel movements yesterday. s/ p EGD today showing gastritis, otherwise no significant pathology. Objective - Vital Signs/Intake and Output Vital Signs (last 24 hours): Temp Pulse Resp BP Pulse Ox 98.9 F 81 20 113/71 97 09/15/17 00:00 09/15/17 00:00 09/15/17 00:00 09/15/17 00:00 09/15/17 00:00 - Medications Medications: Current Medications Docusate Sodium (Colace) 100 mg PO TID [facility] Last Admin: 09/14/17 17:43 Dose: 100 mg Sodium Chloride (Sodium Chloride 0.9%) 1,000 mls @ 100 mls/hr IV .Q10H [facility] Last Admin: 09/14/17 15:30 Dose: 100 mls/hr Nicotine (Nicoderm Cq) 1 patch TD DAILY [facility] Last Admin: 09/14/17 10:48 Dose: 1 patch Ondansetron HCl (Zofran Inj) 4 mg IVP Q6H [facility] Last Admin: 09/15/17 04:00 Dose: 4 mg Pantoprazole Sodium (Protonix Inj) 40 mg IVP BID [facility] Last Admin: 09/14/17 18:00 Dose: 40 mg Polyethylene Glycol (Miralax) 17 gm PO DAILY [facility] Last Admin: 09/14/17 10:48 Dose: Not Given - Labs Labs: 09/15/17 07:14 09/14/17 06:17 PT 10.3 SECONDS (9.7-12.2) 09/13/17 11:07 INR 0.9 09/13/17 11:07 APTT 24 SECONDS (21-34) 09/12/17 01:47 Assessment and Plan - Assessment and Plan (Free Text) Assessment: Polysubstance abuse Abdominal pain - s/p EGD today showing mild gastritis Plan: - Advance diet as tolerated - Obtain stool studies - Follow up EGD biopsy results - Continue with PPI therapy - No further planned GI intervention, will sign off case. Patient would benefit from elective outpatient colonoscopy following resolution of acute symptoms.
[2017-09-15 08:23] LABS: ALKALINE PHOSPHATASE 40 U/L (38-126); ALT/SGPT 44 U/L (21-72); AST/SGOT 42 U/L (17-59); BILIRUBIN,TOTAL 0.6 mg/dL (0.2-1.3); BLOOD UREA NITROGEN 7 mg/dL (9-20); CARBON DIOXIDE 25 mmol/L (22-30); CHLORIDE 101 mmol/L (98-107); GFR AFRICAN-AMERICAN > 60; GLUCOSE,RANDOM 89 mg/dL (75-110); POTASSIUM 3.7 mmol/L (3.6-5.2); SODIUM 133 mmol/L (132-148); TOTAL PROTEIN 6.4 g/dL (6.3-8.3)
[2017-09-15] MEDS: POLYETHYLENE GLYCOL 3350 17 GM/Dose PACKET PO SCH (09:32)
[2017-09-15] MEDS: Sodium Chloride 0.9% 1,000 ML IV SCH (11:32)
--- NOTE | 2017-09-15 16:36 | CP.PCM.DIS ---
Provider - Provider Date of Admission: 09/12/17 04:00 Attending physician: Alex Gooden MD Time Spent in preparation of Discharge (in minutes): 45 Diagnosis - Discharge Diagnosis (1) Gastritis Status: Chronic Hospital Course - Lab Results Lab Results: Most Recent Lab Values WBC 5.4 K/uL (4.8-10.8) 09/15/17 07:14 RBC 4.33 Mil/uL (4.40-5.90) L 09/15/17 07:14 Hgb 14.4 g/dL (12.0-18.0) 09/15/17 07:14 Hct 42.4 % (35.0-51.0) 09/15/17 07:14 MCV 98.0 fL (80.0-94.0) H 09/15/17 07:14 MCH 33.4 pg (27.0-31.0) H 09/15/17 07:14 MCHC 34.1 g/dL (33.0-37.0) 09/15/17 07:14 RDW 11.9 % (11.5-14.5) 09/15/17 07:14 Plt Count 210 K/uL (130-400) 09/15/17 07:14 MPV 8.6 fL (7.2-11.7) 09/15/17 07:14 Neut % (Auto) 47.8 % (50.0-75.0) L 09/15/17 07:14 Lymph % (Auto) 32.0 % (20.0-40.0) 09/15/17 07:14 [place] % (Auto) 15.9 % (0.0-10.0) H 09/15/17 07:14 Eos % (Auto) 3.2 % (0.0-4.0) 09/15/17 07:14 Baso % (Auto) 1.1 % (0.0-2.0) 09/15/17 07:14 Neut # 2.6 K/uL (1.8-7.0) 09/15/17 07:14 Lymph # 1.7 K/uL (1.0-4.3) 09/15/17 07:14 [place] # 0.9 K/uL (0.0-0.8) H 09/15/17 07:14 Eos # 0.2 K/uL (0.0-0.7) 09/15/17 07:14 Baso # 0.1 K/uL (0.0-0.2) 09/15/17 07:14 PT 10.3 SECONDS (9.7-12.2) 09/13/17 11:07 INR 0.9 09/13/17 11:07 APTT 24 SECONDS (21-34) 09/12/17 01:47 Sodium 133 mmol/L (132-148) 09/15/17 07:14 Potassium 3.7 mmol/L (3.6-5.2) 09/15/17 07:14 Chloride 101 mmol/L (98-107) 09/15/17 07:14 Carbon Dioxide 25 mmol/L (22-30) 09/15/17 07:14 Anion Gap 10 (10-20) 09/15/17 07:14 BUN 7 mg/dL (9-20) L 09/15/17 07:14 Creatinine 0.9 mg/dL (0.8-1.5) 09/15/17 07:14 Est GFR ( Amer) > 60 09/15/17 07:14 Est GFR (Non-Af Amer) > 60 09/15/17 07:14 Random Glucose 89 mg/dL (75-110) 09/15/17 07:14 Hemoglobin A1c 5.4 % (4.2-6.5) 09/12/17 07:10 Calcium 8.0 mg/dl (8.6-10.4) L 09/15/17 07:14 Phosphorus 2.7 mg/dL (2.5-4.5) 09/12/17 07:10 Magnesium 2.0 mg/dL (1.6-2.3) 09/13/17 11:07 Total Bilirubin 0.6 mg/dL (0.2-1.3) 09/15/17 07:14 AST 42 U/L (17-59) 09/15/17 07:14 ALT 44 U/L (21-72) 09/15/17 07:14 Alkaline Phosphatase 40 U/L (38-126) 09/15/17 07:14 Total Protein 6.4 g/dL (6.3-8.3) 09/15/17 07:14 Albumin 3.2 g/dL (3.5-5.0) L 09/15/17 07:14 Globulin 3.2 gm/dL (2.2-3.9) 09/15/17 07:14 Albumin/Globulin Ratio 1.0 (1.0-2.1) 09/15/17 07:14 Lipase 172 U/L (23-300) 09/12/17 01:47 Free T4 1.00 ng/dL (0.78-2.19) 09/12/17 07:10 TSH 3rd Generation 0.57 mIU/L (0.46-4.68) 09/12/17 07:10 Stool H. pylori Ag Not detected (Not Detected) 09/12/17 Unknown Urine Opiates Screen Negative (NEGATIVE) 09/12/17 22:48 Urine Methadone Screen Negative (NEGATIVE) 09/12/17 22:48 Ur Barbiturates Screen Negative (NEGATIVE) 09/12/17 22:48 Ur Phencyclidine Scrn Negative (NEGATIVE) 09/12/17 22:48 Ur Amphetamines Screen Negative (NEGATIVE) 09/12/17 22:48 U Benzodiazepines Scrn Negative (NEGATIVE) 09/12/17 22:48 U Oth Cocaine Metabols Negative (NEGATIVE) 09/12/17 22:48 U Cannabinoids Screen Positive (NEGATIVE) H 09/12/17 22:48 Alcohol, Quantitative < 10 mg/dl (0-10) 09/12/17 01:47 H. pylori Source Stool 09/12/17 Unknown HIV 1&2 Antibody Screen Negative (NEGATIVE) 09/13/17 07:42 - Hospital Course Hospital Course: CC: nausea, vomiting HPI: This patient is a 52 year old male with a PMHx of ulcers who presents to the ED with complaints of nausea, non-bloody non-bilious vomiting x 3 days associated with subjective fever, chills, diffuse burning abdominal pain, and watery non-bloody stool. Patient presented to the E.D for the same reason on . Workup was negative except for gastritis found on Cat-Scan. He was dc' d from the ED with PO Zofran. Patient was unable to keep the Zofran down along with most foods or drinks. Patient has had several episodes with similar symptoms over the last 3 years. His abdominal pain is minimally relieved with Zantac. He has no primary care physician. ROS * POSITIVE: Abdominal Pain, Nausea, Non-Blood Vomitting, Subjective Fever, Chills, Productive Cough with Brown/White sputum, non-bloody watery stool Headache, Dizziness, and generalized weakness * NEGATIVE: Patient denies any recent changes in diet, sick contacts, urinary symptoms, chest pain, palpitations, SOB PMHx: Ulcers, HTN Allergies: Denies PSHx: Denies Hos: Multiple ED visits for similar symptoms Social Hx: 5 cigarettes a day intermittently for 30 years ago, 4-6 beers a day on Thursday, Admits to marijuana use. Works in Construction. FamHx: Diabetes (Mother), HTN (Mother) Meds: None PMD: None Hospital course: Patient was admitted for intractable vomiting and abdominal pain on 09/12/17. In the ED, blood work was ordered, protonix and zofran were administered. Patient was found to have elevated blood pressure, for which one dose of Norvasc was given. Blood pressure was likely elevated secondary to pain , however was continuously monitored throughout hospital stay. Urine drug screen was positive for cannabinoids. Patient had an abdomen/pelvis CT on (from a previous ED visit) which showed gastritis. GI (Dr. Jessica) was consulted. Protonix and Zofran were continued. Patient was given IV fluids and NPO. Patient then tried a clear liquid diet which he tolerated. On 09/15/17, patient went for an EGD, which showed gastritis. Diet was advanced and patient was monitored. Patient was seen today status post EGD in no acute distress. Patient complained of nausea and had one episode of vomiting liquid. Patient tolerated the advanced diet, and nausea improved with zofran. Patient is stable for discharge to home. This is a brief summary of the hospital course. Please see EMR for more details. Discharge Exam - Head Exam Head Exam: ATRAUMATIC, NORMOCEPHALIC - Eye Exam Eye Exam: EOMI, Normal appearance - ENT Exam ENT Exam: Mucous Membranes Moist - Respiratory Exam Respiratory Exam: Clear to PA & Lateral, NORMAL BREATHING PATTERN, UNREMARKABLE. absent: Rales, Rhonchi, Wheezes, Respiratory Distress - Cardiovascular Exam Cardiovascular Exam: REGULAR RHYTHM, +S1, +S2 - GI/Abdominal Exam GI & Abdominal Exam: Normal Bowel Sounds. absent: Distended, Guarding, Mass, Soft, Tenderness - Extremities Exam Extremities exam: normal inspection, pedal pulses present - Neurological Exam Neurological exam: Alert, Oriented x3 - Psychiatric Exam Psychiatric exam: Normal Affect, Normal Mood - Skin Skin Exam: Dry, Intact, Normal Color, Warm Discharge Plan - Discharge Medications Prescriptions: Pantoprazole Sodium [Protonix] 40 mg PO DAILY #30 - Follow Up Plan Condition: FAIR Disposition: HOME/ ROUTINE Instructions: Hyperemesis Gravidarum (DC), Acute Nausea and Vomiting (DC), Abdominal Pain (ED) Additional Instructions: Patient is stable for discharge to home. Patient should continue home medications and start new medication listed below. Protonix 40mg PO daily- take one tablet by mouth daily. Patient should maintain a mild diet, avoid NSAIDs, spicy food and alcohol. Patient should follow up with their PMD within one week of discharge. If symptoms worsen or reoccur, patient should return to the ED.
[2017-09-15 16:56] VITALS: BP 155/91; PULSE 83; RESP 20; TEMP 98.5; O2SAT 97
== END 2017-09-15 19:02 | disposition home or self-care (01) | DRG 392 ==
LOC: C.ER 01:22 → C.3T 04:00
PROVIDERS: ADMIT Internal Medicine; ATTEND Internal Medicine
PROC: 0DD98ZX Extraction of Duodenum, Via Natural or Artificial Opening Endoscopic, Diagnostic (ICD-10-PCS; principal; 2017-09-12)
DX: K29.70 Gastritis, unspecified, without bleeding (principal); I10 Essential (primary) hypertension; F17.210 Nicotine dependence, cigarettes, uncomplicated; K21.9 Gastro-esophageal reflux disease without esophagitis; Z82.49 Family history of ischemic heart disease and other diseases of the circulatory system; Z87.11 Personal history of peptic ulcer disease; Z83.3 Family history of diabetes mellitus; E86.0 Dehydration